=== PATIENT | male | born 1950 | race Caucasian/White ===

== ENCOUNTER → 2018-04-27 | Day surgery (SDC) | payer MEDICARE ==
[~2018-04-27] MED LIST: Bupivacaine 0.75% 10 ML AMP ONE; CEFAZOLIN 1 GM VIAL ONE; Cyclopentolate 1% Opth Drop 2 ML BOT FS SCH; Cyclopentolate 1% Opth Drop 2 ML BOT ONE; Fentanyl 100 MCG/2 ML VIAL ONE; Fluorouracil 100 MG, Enoxaparin Sodium 25 MG, EPINEPHrine 0.3 MG in Ophthalmic Irrigati... IVPB SCH; Fluorouracil 100 MG, Enoxaparin Sodium 25 MG, EPINEPHrine 0.3 MG, Dextrose 50% 3 ML in ... IVPB SCH; Lidocaine 1% PF 5 ML VIAL ONE; Lidocaine 4% PF 5 ML AMP ONE; Maxitrol 0.1% Opth Oint 3.5 GM TUBE ONE; Midazolam HCl 2 mg/2 ml Vial ONE; PROPOFOL 200 MG/20 ML VIAL ONE; Phenylephrine 2.5% Ophth Soln 5 ML BOT FS SCH; Phenylephrine 2.5% Ophth Soln 5 ML BOT ONE; Triamcinolone 40 MG/ML VIAL ONE
--- NOTE | 2018-04-28 14:47 | OP ---
DATE OF SURGERY: 04/27/2018 PREOPERATIVE DIAGNOSIS: Rhegmatogenous retinal detachment, left eye. POSTOPERATIVE DIAGNOSIS: Rhegmatogenous retinal detachment, left eye. PROCEDURE: Pars plana vitrectomy and retinal detachment repair, left eye. SURGEON: Dr. Danilo Garcia ANESTHESIA: Local with monitored anesthesia care. PROCEDURE IN DETAIL: The patient was identified in the preoperative holding area. Appropriate infor med consent for the planned surgical procedure on the left eye had been obtained. The patient was tr ansported to the operative suite where appropriate cardiopulmonary monitoring was established. Local anesthesia obtained using retrobulbar block. The patient was prepped and draped in the usual steril e manner for ophthalmic surgery on the left eye. Lid speculum was placed in the left eye. The 25-ga uge trocars were placed in conjunctiva and sclera supratemporally, inferotemporally, and supranasally . Infusion line was placed inferotemporally. Light pipe and vitreous cutter were inserted into the eye. Core vitrectomy was performed. Attention was turned to the superior temporal horseshoe tear wh ere vitreous traction was released. Posterior drain retinotomy was created and air fluid exchange wa s performed with 10 minutes being allowed for fluid to drain posteriorly. A 360 laser was placed usi ng endolaser delivery device. A 28% sulfur hexafluoride gas was infused into the eye. Trocars were removed. Eye was noted to retain pressure well. Superior temporal, supranasal sclerotomy was suture closed. Retrobulbar Kenalog and subconjunctival Ancef were placed. Antibiotic ointment was placed and the eye was patched and shielded. He was taken to postoperative recovery unit in good condition having suffered no immediate operative complications. DISCHARGE INSTRUCTIONS: The patient was advised to position left side down, call for pain not reliev ed by Tylenol, and follow up in the morning with Dr. Garcia.
== END ==
LOC: SDC 15:13
PROVIDERS: ATTEND Ophthalmology Retina Specialist
PROC: 08B53ZZ Excision of Left Vitreous, Percutaneous Approach (ICD-10-PCS; principal; 2018-04-27)
PROC: 08QF3ZZ Repair Left Retina, Percutaneous Approach (ICD-10-PCS; 2018-04-27)
DX: H33.012 Retinal detachment with single break, left eye (principal)
CPT/HCPCS: 67025; J0171; J0690; J1650; J2001; J2250; J2704; J3010; J3301; J3490; J9190